=== PATIENT | female | born 1955 | race Caucasian/White ===

== ENCOUNTER 2021-07-20 17:04 | Inpatient (IN) | payer OTHER ==
[~2021-07-20] VITALS: Ht 167.6 cm; Wt 123.5 kg
--- NOTE | 2021-07-20 17:09 | NUR ---
BIBA FOR AMS WITH STABLE VITALS. 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 EMS GAVE 5MG OF IM VERSED TO SUPPRESS SEIZURE. FSBS 126 ON ARRIVAL PATIENT POST ICTAL. NON ROUSABLE, PUPIL PERRLA X 3 BUT SLUGGISH JAW THRUST TRANSITIONED TO RIGHT NARE 20F NPA (PLACED BY INSIDE CHANNEL ACCOUNT MANAGER) FOR AIRWAY COLLAPSE PATIENT INCONTINENT OF URINE REPEAT FSBS 162 LABS DRAWN.ECG OBTAINED THEN TRANSPORTED TO CT SCAN
[2021-07-20] MEDS ORDERED: PLEASE ENTER ALLERGIES MC SCH (17:30)
[2021-07-20] MEDS ORDERED: PLEASE ENTER HEIGHT AND WEIGHT MC SCH (17:30)
[2021-07-20] MEDS ORDERED: SODIUM CHLORIDE FLUSH 10ML SYR IVF ONE (17:30)
[2021-07-20 17:36] LABS: BASOPHILS % (AUTO) 0 % (0-1); EOSINOPHILS % (AUTO) 0 % (1-7); LYMPHOCYTES % (AUTO) 11 % (22-44); MEAN CORPUSCULAR HEMOGLOBIN 31.9 pg (27.0-34.8); MEAN CORPUSCULAR HGB CONC 33.6 g/dL (32.4-35.8); MEAN PLATELET VOLUME 8.1 fL (7.4-10.4); MONOCYTES % (AUTO) 6 % (2-9); NEUTROPHILS % (AUTO) 82 % (42-75); PLATELET COUNT 397 x10^3/uL (130-400); RED BLOOD COUNT 4.77 x10^6/uL (3.82-5.3); RED CELL DISTRIBUTION WIDTH 13.8 % (9.6-15.2)
--- NOTE | 2021-07-20 17:42 | NUR ---
PATIENT NOW ALERT/ORIENT. NO FOCAL DEFICITS. ABLE TO PROVIDE A FAIRLY GOOD HISTORY
[2021-07-20 17:49] LABS: INTERNATIONAL NORMALIZED RATIO 1.03 (0.93-1.1)
[2021-07-20 17:49] LABS: ALANINE AMINOTRANSFERASE 30 U/L (12-78); ALBUMIN 3.7 g/dL (3.4-5.0); ANION GAP 16 mmol/L (5-15); CALCIUM 9.9 mg/dL (8.5-10.1); CHLORIDE 89 mmol/L (98-107); SALICYLATE LEVEL 2.5 mg/dL (2.8-20.0)
[2021-07-20 17:51] LABS: ALKALINE PHOSPHATASE 110 U/L (45-117); BILIRUBIN,TOTAL 0.4 mg/dL (0.2-1.0); CREATININE 1.44 mg/dL (0.55-1.02); TOTAL PROTEIN 8.1 g/dL (6.4-8.2)
--- NOTE | 2021-07-20 18:01 | NUR ---
STRAIGHT CATHERIZED FOR SAMPLE-WALKED TO LAB
--- NOTE | 2021-07-20 18:05 | NUR ---
CONCHA MURGUIA AT BEDSIDE. REPORTS PATIENT HAS BEEN OVER USING XANAX- CELL: [phone]
[2021-07-20 18:13] LABS: MICROSCOPIC AUTO
[2021-07-20 18:23] LABS: AMPHETAMINE SCREEN, URINE Negative (Negative); BARBITURATE SCREEN, URINE Negative (Negative); BENZODIAZEPINE SCREEN, URINE Positive (Negative); CANNABINOID SCREEN, URINE Negative (Negative); COCAINE SCREEN, URINE Negative (Negative); METHADONE SCREEN, URINE Negative (Negative); OPIATE SCREEN, URINE Positive (Negative)
--- NOTE | 2021-07-20 18:28 | NUR ---
500ML NS BOLUS COMPLETE PATIENT TRANSFERRED TO ROOM 16 REPORT TO GLADYS JAMES
[2021-07-20] MEDS ORDERED: SODIUM CHLORIDE FLUSH 10ML SYR IVF PRN (18:30)
[2021-07-20] MEDS ORDERED: SODIUM CHLORIDE 0.9% 1,000 ML IV ONE ×2 (18:30)
[2021-07-20] MEDS ORDERED: SODIUM CHLORIDE 0.9%, 500ML IVBOLUS ONE (18:30)
[2021-07-20] MEDS ORDERED: OXYcodone IR 5MG TABLET PO PRN (19:00)
[2021-07-20] MEDS ORDERED: LORazepam 2 MG/ML, 1ML IV PRN ×3 (19:00)
[2021-07-20] MEDS ORDERED: ACETAMINOPHEN 325 MG TABLET PO PRN (19:00)
[2021-07-20] MEDS ORDERED: POLYETHYLENE GLYCOL 17 GM PACKET PO PRN (19:00)
[2021-07-20] MEDS ORDERED: LORazepam 1MG TABLET PO PRN (19:00)
[2021-07-20] MEDS ORDERED: ONDANSETRON 2MG/ML, 2ML IVPush PRN (19:00)
[2021-07-20] MEDS ORDERED: ENOXAPARIN 40 MG/0.4 ML SQ SCH (19:00)
[2021-07-20] MEDS ORDERED: LABETALOL 5MG/ML, 20ML IVPush PRN (19:00)
--- NOTE | 2021-07-20 19:05 | NUR ---
Report from Mj JAMES
--- NOTE | 2021-07-20 20:34 | NUR ---
Report to Mehreen JAMES
--- NOTE | 2021-07-20 20:49 | NUR ---
Pt did not have belongings in room at time of transfer. Asked prior RN taking care of pt if they had belongings and the RN reports that there were none on arrival from [facility]
[2021-07-20 21:00] VITALS: BP 137/84
[2021-07-20] MEDS ORDERED: MELATONIN 5 MG TABLET PO PRN (21:00)
[2021-07-20] MEDS: ENOXAPARIN 40 MG/0.4 ML SQ SCH (22:59)
[2021-07-20 23:30] VITALS: BP 142/75
[2021-07-21 02:00] VITALS: BP 117/79
[2021-07-21 05:57] LABS: CHLORIDE,URINE RANDOM 21 mmol/L; POTASSIUM,URINE RANDOM 5 mmol/L; SODIUM,URINE RANDOM 25 mmol/L
[2021-07-21 06:01] LABS: BASOPHILS % (AUTO) 0 % (0-1); EOSINOPHILS % (AUTO) 0 % (1-7); LYMPHOCYTES % (AUTO) 15 % (22-44); MEAN CORPUSCULAR HEMOGLOBIN 32.1 pg (27.0-34.8); MEAN CORPUSCULAR HGB CONC 34.1 g/dL (32.4-35.8); MEAN PLATELET VOLUME 8.3 fL (7.4-10.4); MONOCYTES % (AUTO) 10 % (2-9); NEUTROPHILS % (AUTO) 75 % (42-75); PLATELET COUNT 355 x10^3/uL (130-400); RED BLOOD COUNT 4.49 x10^6/uL (3.82-5.3)
[2021-07-21 06:02] LABS: ANION GAP 6 mmol/L (5-15); CALCIUM 10.6 mg/dL (8.5-10.1); CHLORIDE 95 mmol/L (98-107); CREATININE 1.09 mg/dL (0.55-1.02)
[2021-07-21 08:20] VITALS: BP 124/82
[2021-07-21] MEDS ORDERED: OXCA600T10 PO (12:16)
[2021-07-21] MEDS ORDERED: BUPR300T94 PO (12:16)
[2021-07-21] MEDS ORDERED: SERT-238 PO (12:16)
[2021-07-21] MEDS ORDERED: LISI1TAB23 PO (12:16)
[2021-07-21] MEDS ORDERED: AZEL137S4 NAS (12:16)
[2021-07-21] MEDS ORDERED: HYDR-826 PO (12:16)
[2021-07-21] MEDS ORDERED: NIFE-7 PO (12:16)
[2021-07-21] MEDS ORDERED: ALPR0.5T93 PO (12:16)
[2021-07-21] MEDS ORDERED: OMEP20CA20 PO (12:16)
[2021-07-21] MEDS ORDERED: LITH300T30 PO (12:16)
[2021-07-21 15:14] VITALS: BP 128/79
[2021-07-21] MEDS ORDERED: LEVA1.2543 INH (18:13)
[2021-07-21] MEDS ORDERED: SERT100T PO (18:50)
[2021-07-21 19:52] VITALS: BP 142/80
[2021-07-21] MEDS: ENOXAPARIN 40 MG/0.4 ML SQ SCH (20:58)
[2021-07-21] MEDS ORDERED: AMITRIPTYLINE 10 MG TABLET PO SCH (21:00)
[2021-07-21] MEDS ORDERED: SERTRALINE 50MG TABLET PO SCH (21:00)
[2021-07-21] MEDS ORDERED: AMITRIPTYLINE 50 MG TABLET PO SCH (21:00)
[2021-07-21] MEDS ORDERED: LITHIUM CARBONATE 300 MG CAPSULE PO SCH (21:00)
[2021-07-22 00:47] VITALS: BP 155/84
[2021-07-22] MEDS: LORazepam 0.5MG TABLET PO PRN ×2 (01:20→09:21)
[2021-07-22 07:32] VITALS: BP 147/83
[2021-07-22 12:01] VITALS: BP 142/86
[2021-07-22] MEDS ORDERED: OMEPRAZOLE 20 MG CAPSULE.DR PO SCH (12:30)
[2021-07-22 19:00] VITALS: BP 138/83
== END 2021-07-22 19:45 | disposition home or self-care (01) | DRG 91 ==
LOC: ED 18:15 → EDIP 18:23 → ED 21:22 → 4WST 21:44
PROVIDERS: ADMIT Internal Medicine; ATTEND Internal Medicine
DX: G92 Toxic encephalopathy (principal); N17.0 Acute kidney failure with tubular necrosis; Z68.41 Body mass index [BMI] 40.0-44.9, adult; F33.3 Major depressive disorder, recurrent, severe with psychotic symptoms; E11.9 Type 2 diabetes mellitus without complications; E66.9 Obesity, unspecified; F41.0 Panic disorder [episodic paroxysmal anxiety]; F41.1 Generalized anxiety disorder; I10 Essential (primary) hypertension; E66.01 Morbid (severe) obesity due to excess calories; Z91.14 Patient's other noncompliance with medication regimen
CPT/HCPCS: 36415; 70450; 70551; 71045; 80048; 80053; 80178; 80299; 80307; 80320; 80329; 81001; 82436; 82570; 82962; 83735; 84133; 84300; 84443; 85025; 85610; 85730; 93005; 95819; 96360; 99291; G0378; J1650; G0480; J7030; J7040

== ENCOUNTER 2021-08-06 14:20 | Inpatient (IN) | payer MEDICARE, OTHER ==
[~2021-08-06] VITALS: Ht 160 cm; Wt 122.4 kg
[~2021-08-06 14:20] MED LIST: ALPR0.5T93 PO; AZEL137S4 NAS; BUPR300T94 PO; HYDR-826 PO; LEVA1.2543 INH; LISI1TAB23 PO; LITH300T30 PO; NIFE-7 PO; OMEP20CA20 PO; OXCA600T10 PO; SERT-238 PO; SERT100T PO
[2021-08-06] MEDS ORDERED: MIDAZOLAM 1 MG/ML, 2ML ONE (14:40)
--- NOTE | 2021-08-06 14:53 | NUR ---
PT BIB [facility], PT WITH LAST KNOWN NORMAL GREATER THEN 24HRS AGO PER PT SON. PER SON SHE HAS BEEN SLEEPING WITH A CONTRATED HAND FOR ABOUT A DAY AND THEN A FEW HOURS AGO SHE BEGAN TO "BREATH FUNNY" PT ARRIVES CONTRACTED R ARM, EYES DEVIATED AND FIXED TO THE LEFT. +BABINSKI ON ERMD EXAM. PT HYPERTENSIVE 215/119 HR 140 RR 33. FSBG 169 ON ARRIVAL. PT WITH RECENT DX OF SEIZURES. PT GIVEN 2.5 VERSED OVEN DRIER TENDER. NO OBVIOUS EFFECT NOTED. ADDITIONAL 4MG ORDERED BY ALEXANDRA AND ADMINISTERED. PT TO CARD MONITOR, BP, CONT PULSE OX. PT TO T3 AT THIS TIME, CT CALLED BY ALEXANDRA. REPORT TO ROMINA JAMES. SON BLADE [phone]
--- NOTE | 2021-08-06 14:59 | NUR ---
ASSUMED CARE, PT ON TRANSPORT MONITOR AND TAKEN TO CT WITH RN ESCORT.
[2021-08-06] MEDS ORDERED: PLEASE ENTER HEIGHT AND WEIGHT MC SCH (15:00)
[2021-08-06] MEDS ORDERED: SODIUM CHLORIDE FLUSH 10ML SYR IVF ONE (15:00)
[2021-08-06] MEDS ORDERED: MIDAZOLAM 1 MG/ML, 5ML IVPush ONE (15:00)
[2021-08-06] MEDS ORDERED: OMNIPAQUE 350 MG/ML, 100ML BOTTLE ONE (15:21)
[2021-08-06 15:44] LABS: BASOPHILS % (AUTO) 0 % (0-1); EOSINOPHILS % (AUTO) 0 % (1-7); LYMPHOCYTES % (AUTO) 4 % (22-44); MEAN CORPUSCULAR HEMOGLOBIN 31.9 pg (27.0-34.8); MEAN CORPUSCULAR HGB CONC 35.1 g/dL (32.4-35.8); MEAN PLATELET VOLUME 8.5 fL (7.4-10.4); MONOCYTES % (AUTO) 6 % (2-9); NEUTROPHILS % (AUTO) 90 % (42-75); PLATELET COUNT 395 x10^3/uL (130-400); RED BLOOD COUNT 4.93 x10^6/uL (3.82-5.3); RED CELL DISTRIBUTION WIDTH 13.2 % (9.6-15.2)
[2021-08-06 15:50] LABS: INTERNATIONAL NORMALIZED RATIO 1.04 (0.93-1.1); PROTHROMBIN TIME 11.1 Seconds (9.6-11.5); SALICYLATE LEVEL < 1.7 mg/dL (2.8-20.0)
[2021-08-06 15:53] LABS: CREATINE KINASE, TOTAL 41 U/L (26-192); TROPONIN I < 0.015 ng/mL (0.000-0.045)
[2021-08-06] MEDS ORDERED: SODIUM CHLORIDE 0.9% 1,000ML IVBOLUS ONE ×2 (16:00→17:00)
[2021-08-06] MEDS ORDERED: SODIUM CHLORIDE 0.9% 1,000 ML IV ONE (16:00)
[2021-08-06] MEDS ORDERED: ARTIFICIAL TEARS OINT 3.5 GM EACHEYE SCH (16:00)
--- NOTE | 2021-08-06 16:01 | NUR ---
LATE ENTRY FOR 1500, CT AND CTA WERE COMPLETED W/O INCIDENT. WHEN TRANSFERING PT FROM CT TABLE BACK [facility], PT SAID VERY CLEARLY "WHAT ARE YOU DOING" PT RTD TO TRAUMA [address] JENKINS TO BEDSIDE. PT NOW FOLLOWING COMMANDS AND ANSWERS QUESTIONS. ORIENTED TO PERSON ONLY. ABLE TO MOVE EXT X 4 TO COMMAND, OPEN AND CLOSE HER EYES ON COMMAND. ORAL CARE COMPLETED AND PT COOPERATIVE. PT CONTINUES TO BE SOMEWHAT STIFF, PREFERS TO HAVE RIGHT ARM FLEXED AT THE ELBOW AND WRIST FLEX BACK WELL, HOWEVER I CAN REPOSITION IT TO LAYING NEXT TO HER BUT SHE BRINGS IT BACK UP TO THE FLEXED POSITION. PT DOES NOT BLINK SPONTANEOUSLY BUT WILL BLINK WHEN I INSTRUCT HER TO. EYES ARE EXTREMELY DRY, SALINE FLUSHES USED TO MOISTEN AND ARTIFICAL TEAR OINTMENT ORDER SENT TO PHARM.
[2021-08-06 16:28] LABS: ACETONE, SERUM Negative (Negative)
[2021-08-06] MEDS ORDERED: AZTREONAM 2 GM in SODIUM CHLORIDE 0.9% 100 ML IVPB ONE (16:30)
[2021-08-06] MEDS ORDERED: VANCOMYCIN PER PHARMACY MC ONE (16:30)
[2021-08-06] MEDS ORDERED: hydrALAzine 20 MG/ML, 1ML IV ONE (16:30)
[2021-08-06] MEDS ORDERED: hydrALAzine 20 MG/ML, 1ML ONE (16:32)
--- NOTE | 2021-08-06 16:32 | NUR ---
LAB RESULTS AND BP DISCUSSED WITH DR JENKINS, NEW ORDERS REC'D. BP TREATED WITH HYDRALAZINE NOTED.
--- NOTE | 2021-08-06 16:36 | NUR ---
DR FULTON AT BEDSIDE, PT ASSESSEMENT REVIEWED AND POC DISCUSSED. QUESTIONS ANSWERED
[2021-08-06] MEDS ORDERED: METOPROLOL 1 MG/ML, 5ML ONE (16:48)
[2021-08-06] MEDS: METOPROLOL 1 MG/ML, 5ML IVPush SCH ×2 (16:50→23:00)
[2021-08-06] MEDS ORDERED: VANCOMYCIN PER PHARMACY MC PRN (17:00)
[2021-08-06] MEDS ORDERED: DIPHENHYDRAMINE 50 MG/ML, 1ML IVPush ONE (17:00)
[2021-08-06] MEDS ORDERED: ONDANSETRON 2MG/ML, 2ML IVPush PRN (17:00)
[2021-08-06] MEDS ORDERED: VANCOMYCIN 2,500 MG in SODIUM CHLORIDE 0.9% 500 ML IV ONE (17:00)
[2021-08-06] MEDS ORDERED: SODIUM CHLORIDE 0.9% 1,000 ML IV SCH (17:00)
[2021-08-06] MEDS ORDERED: SODIUM CHLORIDE FLUSH 10ML SYR IVF PRN (17:00)
[2021-08-06] MEDS ORDERED: ENOXAPARIN 40 MG/0.4 ML SQ SCH (17:00)
--- NOTE | 2021-08-06 17:03 | NUR ---
SEPSIS WORKUP DISCUSSED WITH DR HAMMONDS. PT REC'D 1000ML NS BOLUS AND NS TO RUN AT 125ML/HR. PT IS NOT HYPOTENSIVE AND WE WILL NOT BE GIVING MORE BOLUSES 2/2 PTS SODIUM LEVEL OF 119.
[2021-08-06 17:19] LABS: ALBUMIN 3.3 g/dL (3.4-5.0); ANION GAP 11 mmol/L (5-15); CALCIUM 9.6 mg/dL (8.5-10.1); CHLORIDE 80 mmol/L (98-107)
--- NOTE | 2021-08-06 17:22 | NUR ---
LATE ENTRY 1700, STRAIGHT CATH COMPLETED FOR URINE. +300ML CLEAR DANIELLA URINE DRAINED. LEFT HAND PIV LEAKING BLOOD AT INSERTION SITE AND INTO SURROUNDING TISSUE. IV D/C'D TIP INTACT. PRESSURE DRESSING APPLIED. HEMOSTASIS OBTAINED
[2021-08-06 17:24] LABS: ALANINE AMINOTRANSFERASE 27 U/L (12-78); ALKALINE PHOSPHATASE 144 U/L (45-117); BILIRUBIN,TOTAL 0.4 mg/dL (0.2-1.0); CREATININE 1.02 mg/dL (0.55-1.02); TOTAL PROTEIN 7.8 g/dL (6.4-8.2)
--- NOTE | 2021-08-06 17:24 | NUR ---
PT SON, BLADE AT BEDSIDE. DR JENKINS UPDATE SON ON PT PLAN OF CARE AND QUESTIONS ANSWERED.
--- NOTE | 2021-08-06 17:25 | NUR ---
DENNY KERN [phone]
[2021-08-06] MEDS ORDERED: DIPHENHYDRAMINE 50 MG/ML, 1ML ONE (17:29)
[2021-08-06 17:37] LABS: TROPONIN I 0.179 ng/mL (0.000-0.045)
[2021-08-06 17:38] LABS: MICROSCOPIC AUTO
[2021-08-06 17:39] LABS: AMPHETAMINE SCREEN, URINE Negative (Negative); BARBITURATE SCREEN, URINE Negative (Negative); BENZODIAZEPINE SCREEN, URINE Positive (Negative); CANNABINOID SCREEN, URINE Negative (Negative); COCAINE SCREEN, URINE Negative (Negative); METHADONE SCREEN, URINE Negative (Negative); OPIATE SCREEN, URINE Negative (Negative)
--- NOTE | 2021-08-06 17:40 | NUR ---
UPDATED DR HAMMONDS RE: BP, ELEVATED TROPONIN
[2021-08-06] MEDS: MEROPENEM 1 GM in SODIUM CHLORIDE 0.9% 100 ML IV SCH (17:41)
[2021-08-06] MEDS ORDERED: MAGNESIUM SULFATE PMX 2GM/50ML 50 ML IV ONE (18:00)
[2021-08-06] MEDS ORDERED: ACETAMINOPHEN 650 MG SUPP PR PRN (18:00)
[2021-08-06] MEDS ORDERED: ASPIRIN 300 MG SUPP PR ONE (18:00)
[2021-08-06 18:02] LABS: ANION GAP 10 mmol/L (5-15); CALCIUM 10.1 mg/dL (8.5-10.1); CHLORIDE 85 mmol/L (98-107); CREATININE 0.99 mg/dL (0.55-1.02)
[2021-08-06] MEDS ORDERED: ACETAMINOPHEN 325 MG SUPP ONE (18:20)
[2021-08-06] MEDS ORDERED: ASPIRIN 300 MG SUPP ONE (18:20)
[2021-08-06] MEDS: cloniDINE 0.1MG PATCH TD SCH (18:33)
--- NOTE | 2021-08-06 18:45 | NUR ---
3 PAPIRS OF EARINGS, NECKLACE AND 6 RINGS SENT HOME WITH PTS SON. Addendum: 08/06/21 at 1846 by RFRUHLING ALSO A WATCH
[2021-08-06] MEDS ORDERED: ENOXAPARIN 40 MG/0.4 ML ONE (18:47)
[2021-08-06] MEDS ORDERED: PHARMACOKINETIC MONITORING MC PRN (19:30)
[2021-08-06] MEDS ORDERED: PHARMACOKINETIC CONSULTATION MC ONE (19:30)
[2021-08-06] MEDS: FAMOTIDINE 20 MG/2 ML IVPush SCH (20:51)
[2021-08-06] MEDS: INSULIN LISPRO 100 UNITS/ML, PEN SQ-INSULIN SCH (20:58)
[2021-08-06 23:31] LABS: ANION GAP 10 mmol/L (5-15); CALCIUM 9.4 mg/dL (8.5-10.1); CHLORIDE 90 mmol/L (98-107); CREATININE 0.88 mg/dL (0.55-1.02)
[2021-08-06 23:34] LABS: TROPONIN I 0.812 ng/mL (0.000-0.045)
[2021-08-07] MEDS: DIPHENHYDRAMINE 50 MG/ML, 1ML IVPush SCH ×2 (00:08→05:00)
[2021-08-07] MEDS: MEROPENEM 1 GM in SODIUM CHLORIDE 0.9% 100 ML IV SCH ×3 (02:00→18:13)
[2021-08-07 03:53] LABS: BASOPHILS % (AUTO) 0 % (0-1); EOSINOPHILS % (AUTO) 0 % (1-7); LYMPHOCYTES % (AUTO) 4 % (22-44); MEAN CORPUSCULAR HEMOGLOBIN 31.9 pg (27.0-34.8); MEAN CORPUSCULAR HGB CONC 34.7 g/dL (32.4-35.8); MEAN PLATELET VOLUME 8.2 fL (7.4-10.4); MONOCYTES % (AUTO) 8 % (2-9); NEUTROPHILS % (AUTO) 88 % (42-75); PLATELET COUNT 321 x10^3/uL (130-400); RED BLOOD COUNT 4.62 x10^6/uL (3.82-5.3); RED CELL DISTRIBUTION WIDTH 13.5 % (9.6-15.2)
[2021-08-07] MEDS ORDERED: POTASSIUM CHLORIDE 40 MEQ in SODIUM CHLORIDE 0.9% 500 ML IV ONE (04:00)
[2021-08-07 04:01] LABS: ANION GAP 8 mmol/L (5-15); CALCIUM 9.6 mg/dL (8.5-10.1); CHLORIDE 91 mmol/L (98-107); CREATININE 0.86 mg/dL (0.55-1.02)
[2021-08-07] MEDS: METOPROLOL 1 MG/ML, 5ML IVPush SCH (04:02)
[2021-08-07 04:04] LABS: TROPONIN I 0.665 ng/mL (0.000-0.045)
[2021-08-07] MEDS: VANCOMYCIN 2,000 MG in SODIUM CHLORIDE 0.9% 500 ML IV SCH ×2 (05:37→23:54)
[2021-08-07] MEDS: INSULIN LISPRO 100 UNITS/ML, PEN SQ-INSULIN SCH (05:50)
[2021-08-07] MEDS ORDERED: VANCOMYCIN 2,500 MG in SODIUM CHLORIDE 0.9% 500 ML IV SCH (06:00)
[2021-08-07 07:49] LABS: ALANINE AMINOTRANSFERASE 35 U/L (12-78); CHOLESTEROL, TOTAL 278 mg/dL (140-239); TRIGLYCERIDES 128 mg/dL (50-200); VLDL CHOLESTEROL 26 mg/dL (0-25)
[2021-08-07 07:50] LABS: ALKALINE PHOSPHATASE 131 U/L (45-117); BILIRUBIN,TOTAL 0.5 mg/dL (0.2-1.0); CHOL/HDL RATIO 3.1; HDL CHOL % 32 % (28-40); HDL CHOLESTEROL (DIRECT) 90 mg/dL (40-60); LDL CHOLESTEROL,CALCULATED 162 mg/dL (54-169); LDL/HDL RATIO 1.8 (0.5-3.0); TOTAL PROTEIN 7.1 g/dL (6.4-8.2)
[2021-08-07] MEDS: FAMOTIDINE 20 MG/2 ML IVPush SCH ×2 (08:56→21:06)
[2021-08-07] MEDS ORDERED: SODIUM CHLORIDE 0.9% 1,000 ML IV SCH (09:00)
[2021-08-07] MEDS ORDERED: DIPHENHYDRAMINE 50 MG/ML, 1ML IVPush ONE (09:30)
[2021-08-07] MEDS ORDERED: DIPHENHYDRAMINE 50 MG/ML, 1ML IVPush PRN (10:00)
[2021-08-07 10:59] LABS: ANION GAP 9 mmol/L (5-15); CALCIUM 9.6 mg/dL (8.5-10.1); CHLORIDE 96 mmol/L (98-107); CREATININE 0.79 mg/dL (0.55-1.02)
[2021-08-07] MEDS ORDERED: ALBUTEROL SULFATE 2.5 MG/3 ML ONE (11:23)
[2021-08-07] MEDS: ALBUTEROL SULFATE 2.5 MG/3 ML NPPB SCH ×2 (12:00→17:31)
[2021-08-07] MEDS ORDERED: ALBUTEROL SULFATE 2.5 MG/3 ML NPPB PRN (12:00)
[2021-08-07 16:49] LABS: ANION GAP 6 mmol/L (5-15); CALCIUM 9.2 mg/dL (8.5-10.1); CHLORIDE 98 mmol/L (98-107); CREATININE 0.77 mg/dL (0.55-1.02)
[2021-08-07] MEDS ORDERED: POTASSIUM CHLORIDE 20 MEQ TAB.ER.PRT PO ONE (17:30)
[2021-08-07] MEDS ORDERED: DEXMEDETOMIDINE 400 MCG in SODIUM CHLORIDE 0.9% 96 ML IV PRN (18:00)
[2021-08-07] MEDS: METOPROLOL TARTRATE 50 MG TAB PO SCH (18:09)
[2021-08-07] MEDS: hydrALAzine 20 MG/ML, 1ML IV PRN (18:17)
[2021-08-07] MEDS: ENOXAPARIN 40 MG/0.4 ML SQ SCH (21:06)
[2021-08-07] MEDS: ATORVASTATIN 40 MG TABLET PO SCH (21:06)
[2021-08-07] MEDS: DEXMEDETOMIDINE 1,000 MCG in SODIUM CHLORIDE 0.9% 240 ML IV PRN (22:42)
[2021-08-08] MEDS: MEROPENEM 1 GM in SODIUM CHLORIDE 0.9% 100 ML IV SCH ×3 (02:10→16:50)
[2021-08-08 05:04] LABS: ANION GAP 6 mmol/L (5-15); CALCIUM 9.1 mg/dL (8.5-10.1); CHLORIDE 99 mmol/L (98-107); CREATININE 0.75 mg/dL (0.55-1.02)
[2021-08-08 05:05] LABS: BASOPHILS % (AUTO) 0 % (0-1); EOSINOPHILS % (AUTO) 4 % (1-7); LYMPHOCYTES % (AUTO) 9 % (22-44); MEAN CORPUSCULAR HEMOGLOBIN 31.6 pg (27.0-34.8); MEAN CORPUSCULAR HGB CONC 33.9 g/dL (32.4-35.8); MONOCYTES % (AUTO) 7 % (2-9); NEUTROPHILS % (AUTO) 80 % (42-75); PLATELET COUNT 259 x10^3/uL (130-400); RED BLOOD COUNT 4.03 x10^6/uL (3.82-5.3); RED CELL DISTRIBUTION WIDTH 13.1 % (9.6-15.2)
[2021-08-08] MEDS: METOPROLOL TARTRATE 50 MG TAB PO SCH ×2 (05:37→18:17)
[2021-08-08] MEDS: ASPIRIN 81 MG TABLET EC PO SCH (05:37)
[2021-08-08] MEDS: ALBUTEROL SULFATE 2.5 MG/3 ML NPPB SCH ×4 (06:00→18:00)
[2021-08-08] MEDS: FAMOTIDINE 20 MG/2 ML IVPush SCH (08:41)
[2021-08-08] MEDS: ENOXAPARIN 40 MG/0.4 ML SQ SCH ×2 (08:42→20:03)
[2021-08-08] MEDS: DEXMEDETOMIDINE 1,000 MCG in SODIUM CHLORIDE 0.9% 240 ML IV PRN (10:20)
[2021-08-08] MEDS ORDERED: HALOPERIDOL 5 MG/ML ONE (10:29)
[2021-08-08] MEDS ORDERED: HALOPERIDOL 5 MG/ML IV ONE (11:00)
[2021-08-08] MEDS: NICOTINE 14MG/24 HR PATCH.TD24 TD SCH (15:49)
[2021-08-08 16:10] LABS: CLOSTRIDIUM DIFFICILE ANTIGEN NEGATIVE; CLOSTRIDIUM DIFFICILE TOXIN NEGATIVE (Negative)
[2021-08-08] MEDS: VANCOMYCIN 2,000 MG in SODIUM CHLORIDE 0.9% 500 ML IV SCH (18:20)
[2021-08-08 19:07] LABS: MICROSCOPIC INDICATED
[2021-08-08] MEDS: ATORVASTATIN 40 MG TABLET PO SCH (20:03)
[2021-08-08] MEDS: LABETALOL 5MG/ML, 20ML IVPush PRN (20:33)
[2021-08-08] MEDS: ACETAMINOPHEN 325 MG TABLET PO PRN (23:56)
[2021-08-08] MEDS: VANCOMYCIN 2,200 MG in SODIUM CHLORIDE 0.9% 500 ML IV SCH (23:56)
[2021-08-09] MEDS: ALBUTEROL SULFATE 2.5 MG/3 ML NPPB SCH
[2021-08-09] MEDS: MEROPENEM 1 GM in SODIUM CHLORIDE 0.9% 100 ML IV SCH ×3 (02:36→18:45)
[2021-08-09] MEDS: ALBUTEROL HFA 90 MCG/SPRAY INH SCH ×4 (03:00→21:00)
[2021-08-09 05:11] LABS: ALBUMIN 2.4 g/dL (3.4-5.0); ANION GAP 4 mmol/L (5-15); CALCIUM 9.6 mg/dL (8.5-10.1); CHLORIDE 104 mmol/L (98-107)
[2021-08-09 05:13] LABS: BASOPHILS % (AUTO) 0 % (0-1); EOSINOPHILS % (AUTO) 4 % (1-7); LYMPHOCYTES % (AUTO) 7 % (22-44); MEAN CORPUSCULAR HEMOGLOBIN 31.6 pg (27.0-34.8); MEAN CORPUSCULAR HGB CONC 33.7 g/dL (32.4-35.8); MONOCYTES % (AUTO) 7 % (2-9); NEUTROPHILS % (AUTO) 83 % (42-75); PLATELET COUNT 278 x10^3/uL (130-400); RED BLOOD COUNT 4.26 x10^6/uL (3.82-5.3); RED CELL DISTRIBUTION WIDTH 13.3 % (9.6-15.2)
[2021-08-09 05:16] LABS: ALANINE AMINOTRANSFERASE 28 U/L (12-78); ALKALINE PHOSPHATASE 119 U/L (45-117); BILIRUBIN,TOTAL 0.5 mg/dL (0.2-1.0); CREATININE 0.77 mg/dL (0.55-1.02); TOTAL PROTEIN 6.1 g/dL (6.4-8.2)
[2021-08-09] MEDS: METOPROLOL TARTRATE 50 MG TAB PO SCH ×2 (06:12→17:13)
[2021-08-09] MEDS: ASPIRIN 81 MG TABLET EC PO SCH (06:12)
[2021-08-09] MEDS: ENOXAPARIN 40 MG/0.4 ML SQ SCH ×2 (09:01→20:58)
[2021-08-09] MEDS: SERTRALINE 50MG TABLET PO SCH (09:01)
[2021-08-09] MEDS: LABETALOL 5MG/ML, 20ML IVPush PRN (09:15)
[2021-08-09] MEDS: NICOTINE 14MG/24 HR PATCH.TD24 TD SCH (11:00)
[2021-08-09] MEDS: hydrALAzine 20 MG/ML, 1ML IV PRN (13:16)
[2021-08-09 14:08] VITALS: BP 166/92
[2021-08-09 19:59] VITALS: BP 158/87
[2021-08-09] MEDS: ATORVASTATIN 40 MG TABLET PO SCH (20:58)
[2021-08-10 01:54] VITALS: BP 152/84
[2021-08-10] MEDS: MEROPENEM 1 GM in SODIUM CHLORIDE 0.9% 100 ML IV SCH ×3 (02:30→18:05)
[2021-08-10] MEDS: ALBUTEROL HFA 90 MCG/SPRAY INH SCH ×4 (03:00→21:48)
[2021-08-10 05:26] LABS: BASOPHILS % (AUTO) 0 % (0-1); EOSINOPHILS % (AUTO) 4 % (1-7); LYMPHOCYTES % (AUTO) 5 % (22-44); MEAN CORPUSCULAR HEMOGLOBIN 32.1 pg (27.0-34.8); MEAN PLATELET VOLUME 7.9 fL (7.4-10.4); MONOCYTES % (AUTO) 11 % (2-9); NEUTROPHILS % (AUTO) 80 % (42-75); PLATELET COUNT 284 x10^3/uL (130-400); RED BLOOD COUNT 4.23 x10^6/uL (3.82-5.3); RED CELL DISTRIBUTION WIDTH 13.3 % (9.6-15.2)
[2021-08-10 05:36] LABS: ALANINE AMINOTRANSFERASE 29 U/L (12-78); ALBUMIN 2.8 g/dL (3.4-5.0); ANION GAP 7 mmol/L (5-15); CALCIUM 9.8 mg/dL (8.5-10.1); CHLORIDE 104 mmol/L (98-107); CREATININE 0.79 mg/dL (0.55-1.02)
[2021-08-10 05:39] LABS: ALKALINE PHOSPHATASE 106 U/L (45-117); BILIRUBIN,TOTAL 0.3 mg/dL (0.2-1.0); TOTAL PROTEIN 6.4 g/dL (6.4-8.2)
[2021-08-10] MEDS: ASPIRIN 81 MG TABLET EC PO SCH (06:00)
[2021-08-10] MEDS: METOPROLOL TARTRATE 50 MG TAB PO SCH ×2 (06:00→17:28)
[2021-08-10 08:58] VITALS: BP 151/92
[2021-08-10] MEDS: SERTRALINE 50MG TABLET PO SCH (09:02)
[2021-08-10] MEDS: ENOXAPARIN 40 MG/0.4 ML SQ SCH ×2 (09:02→21:48)
[2021-08-10] MEDS: NICOTINE 14MG/24 HR PATCH.TD24 TD SCH (10:24)
[2021-08-10 13:31] VITALS: BP 147/82
[2021-08-10 21:05] VITALS: BP 157/84
[2021-08-10] MEDS: ATORVASTATIN 40 MG TABLET PO SCH (21:48)
[2021-08-10] MEDS: VANCOMYCIN 2,200 MG in SODIUM CHLORIDE 0.9% 500 ML IV SCH ×2 (23:45)
[2021-08-11 02:00] VITALS: BP 155/79
[2021-08-11] MEDS: MEROPENEM 1 GM in SODIUM CHLORIDE 0.9% 100 ML IV SCH ×3 (02:12→18:17)
[2021-08-11] MEDS: ALBUTEROL HFA 90 MCG/SPRAY INH SCH ×4 (03:32→21:47)
[2021-08-11] MEDS: METOPROLOL TARTRATE 50 MG TAB PO SCH ×2 (05:50→17:26)
[2021-08-11] MEDS: ASPIRIN 81 MG TABLET EC PO SCH (05:50)
[2021-08-11 06:26] LABS: BASOPHILS % (AUTO) 0 % (0-1); EOSINOPHILS % (AUTO) 4 % (1-7); LYMPHOCYTES % (AUTO) 3 % (22-44); MEAN CORPUSCULAR HEMOGLOBIN 31.7 pg (27.0-34.8); MEAN CORPUSCULAR HGB CONC 33.7 g/dL (32.4-35.8); MEAN PLATELET VOLUME 7.8 fL (7.4-10.4); MONOCYTES % (AUTO) 10 % (2-9); NEUTROPHILS % (AUTO) 82 % (42-75); PLATELET COUNT 261 x10^3/uL (130-400); RED BLOOD COUNT 4.34 x10^6/uL (3.82-5.3); RED CELL DISTRIBUTION WIDTH 13.8 % (9.6-15.2)
[2021-08-11 06:37] LABS: ALBUMIN 2.6 g/dL (3.4-5.0); CHLORIDE 104 mmol/L (98-107)
[2021-08-11 06:44] LABS: ANION GAP 4 mmol/L (5-15); CALCIUM 9.6 mg/dL (8.5-10.1); CREATININE 0.84 mg/dL (0.55-1.02)
[2021-08-11 08:30] VITALS: BP 166/88
[2021-08-11 08:36] VITALS: BP 155/88
[2021-08-11] MEDS: SERTRALINE 50MG TABLET PO SCH (08:50)
[2021-08-11] MEDS: ENOXAPARIN 40 MG/0.4 ML SQ SCH ×2 (08:51→21:41)
[2021-08-11 10:06] VITALS: BP 142/66
[2021-08-11] MEDS: NICOTINE 14MG/24 HR PATCH.TD24 TD SCH (11:02)
[2021-08-11 12:19] VITALS: BP 151/71
[2021-08-11 20:44] VITALS: BP 138/75
[2021-08-11] MEDS: ATORVASTATIN 40 MG TABLET PO SCH (21:40)
[2021-08-12] VITALS (7 sets, daily range): BP systolic 133–175; BP diastolic 73–90
[2021-08-12] MEDS: VANCOMYCIN 2,200 MG in SODIUM CHLORIDE 0.9% 500 ML IV SCH (00:14)
[2021-08-12] MEDS: MEROPENEM 1 GM in SODIUM CHLORIDE 0.9% 100 ML IV SCH ×2 (02:56→11:32)
[2021-08-12] MEDS: ALBUTEROL HFA 90 MCG/SPRAY INH SCH ×4 (02:57→20:23)
[2021-08-12] MEDS: ASPIRIN 81 MG TABLET EC PO SCH (05:53)
[2021-08-12] MEDS: METOPROLOL TARTRATE 50 MG TAB PO SCH ×2 (05:54→16:50)
[2021-08-12] MEDS: SERTRALINE 50MG TABLET PO SCH (08:52)
[2021-08-12] MEDS: ENOXAPARIN 40 MG/0.4 ML SQ SCH ×2 (08:52→20:23)
[2021-08-12] MEDS: NICOTINE 14MG/24 HR PATCH.TD24 TD SCH (11:34)
[2021-08-12 13:26] LABS: BASOPHILS % (AUTO) 0 % (0-1); EOSINOPHILS % (AUTO) 4 % (1-7); LYMPHOCYTES % (AUTO) 6 % (22-44); MEAN CORPUSCULAR HEMOGLOBIN 31.7 pg (27.0-34.8); MEAN CORPUSCULAR HGB CONC 33.6 g/dL (32.4-35.8); MEAN PLATELET VOLUME 7.9 fL (7.4-10.4); MONOCYTES % (AUTO) 11 % (2-9); NEUTROPHILS % (AUTO) 78 % (42-75); PLATELET COUNT 229 x10^3/uL (130-400); RED BLOOD COUNT 4.26 x10^6/uL (3.82-5.3); RED CELL DISTRIBUTION WIDTH 13.7 % (9.6-15.2)
[2021-08-12 13:39] LABS: ALBUMIN 2.5 g/dL (3.4-5.0); ANION GAP 3 mmol/L (5-15); CALCIUM 9.3 mg/dL (8.5-10.1); CHLORIDE 101 mmol/L (98-107)
[2021-08-12 13:42] LABS: ALANINE AMINOTRANSFERASE 27 U/L (12-78); ALKALINE PHOSPHATASE 93 U/L (45-117); BILIRUBIN,TOTAL 0.3 mg/dL (0.2-1.0); CREATININE 0.77 mg/dL (0.55-1.02); TOTAL PROTEIN 6.3 g/dL (6.4-8.2)
[2021-08-12] MEDS: ATORVASTATIN 40 MG TABLET PO SCH (20:22)
[2021-08-12] MEDS: ACETAMINOPHEN 325 MG TABLET PO PRN (23:13)
[2021-08-13 00:48] VITALS: BP 138/80
[2021-08-13] MEDS: ACETAMINOPHEN 325 MG TABLET PO PRN ×3 (03:14→14:00)
[2021-08-13] MEDS: ALBUTEROL HFA 90 MCG/SPRAY INH SCH ×4 (03:14→20:49)
[2021-08-13 04:47] LABS: CREATININE 0.72 mg/dL (0.55-1.02)
[2021-08-13] MEDS: METOPROLOL TARTRATE 50 MG TAB PO SCH ×2 (05:41→17:48)
[2021-08-13] MEDS: ASPIRIN 81 MG TABLET EC PO SCH (05:42)
[2021-08-13 07:49] VITALS: BP 143/80
[2021-08-13 07:53] LABS: BASOPHILS % (AUTO) 1 % (0-1); EOSINOPHILS % (AUTO) 4 % (1-7); LYMPHOCYTES % (AUTO) 12 % (22-44); MEAN CORPUSCULAR HEMOGLOBIN 31.1 pg (27.0-34.8); MEAN CORPUSCULAR HGB CONC 33.1 g/dL (32.4-35.8); MEAN PLATELET VOLUME 8.7 fL (7.4-10.4); MONOCYTES % (AUTO) 13 % (2-9); NEUTROPHILS % (AUTO) 71 % (42-75); PLATELET COUNT 186 x10^3/uL (130-400); RED BLOOD COUNT 4.04 x10^6/uL (3.82-5.3); RED CELL DISTRIBUTION WIDTH 13.4 % (9.6-15.2)
[2021-08-13] MEDS: SERTRALINE 50MG TABLET PO SCH (07:54)
[2021-08-13] MEDS: ENOXAPARIN 40 MG/0.4 ML SQ SCH ×2 (07:54→20:49)
[2021-08-13 09:02] LABS: ALBUMIN 2.5 g/dL (3.4-5.0); ANION GAP 3 mmol/L (5-15); CALCIUM 9.5 mg/dL (8.5-10.1); CHLORIDE 103 mmol/L (98-107)
[2021-08-13 09:07] LABS: ALANINE AMINOTRANSFERASE 21 U/L (12-78); ALKALINE PHOSPHATASE 84 U/L (45-117); BILIRUBIN,TOTAL 0.3 mg/dL (0.2-1.0); CREATININE 0.74 mg/dL (0.55-1.02)
[2021-08-13] MEDS: NICOTINE 14MG/24 HR PATCH.TD24 TD SCH (11:07)
[2021-08-13 13:40] VITALS: BP 162/77
[2021-08-13] MEDS: cloniDINE 0.1MG PATCH TD SCH (17:48)
[2021-08-13 18:47] VITALS: BP 138/82
[2021-08-13] MEDS: ATORVASTATIN 40 MG TABLET PO SCH (20:49)
[2021-08-14] MEDS: ALBUTEROL HFA 90 MCG/SPRAY INH SCH ×3 (02:25→15:53)
[2021-08-14 02:30] VITALS: BP 148/84
[2021-08-14 05:50] VITALS: BP 169/97
[2021-08-14] MEDS: ASPIRIN 81 MG TABLET EC PO SCH (05:51)
[2021-08-14] MEDS: METOPROLOL TARTRATE 50 MG TAB PO SCH (05:51)
[2021-08-14 06:22] VITALS: BP 168/98
[2021-08-14 06:47] VITALS: BP 176/100
[2021-08-14] MEDS: ENOXAPARIN 40 MG/0.4 ML SQ SCH (08:10)
[2021-08-14] MEDS: SERTRALINE 50MG TABLET PO SCH (08:11)
[2021-08-14] MEDS ORDERED: niFEDipine ER 30 MG TABLET.ER PO SCH (09:00)
[2021-08-14] MEDS ORDERED: LISINOPRIL 20 MG TABLET PO SCH (09:00)
[2021-08-14] MEDS ORDERED: REGADENOSON 0.4 MG/5 ML SYRINGE ONE (11:17)
[2021-08-14 12:00] VITALS: BP 115/74
[2021-08-14] MEDS: NICOTINE 14MG/24 HR PATCH.TD24 TD SCH (13:05)
[2021-08-14] MEDS ORDERED: METO50TA82 PO (16:45)
[2021-08-14] MEDS ORDERED: LISI-170 PO (16:45)
[2021-08-14] MEDS ORDERED: ASPI81TA45 PO (16:45)
[2021-08-14] MEDS ORDERED: ATOR40TA78 PO (16:45)
[2021-08-15] MEDS ORDERED: CARV6.2512 PO (15:37)
== END 2021-08-14 17:18 | disposition left against medical advice (07) | DRG 871 ==
LOC: ED 17:00 → EDIP 17:16 → CCU 18:53 → 4WST 08-09 13:09
PROVIDERS: ADMIT Hospitalist; ATTEND Hospitalist
PROC: B3151ZZ Fluoroscopy of Bilateral Common Carotid Arteries using Low Osmolar Contrast (ICD-10-PCS; 2021-08-06)
PROC: B3181ZZ Fluoroscopy of Bilateral Internal Carotid Arteries using Low Osmolar Contrast (ICD-10-PCS; 2021-08-06)
PROC: B31C1ZZ Fluoroscopy of Bilateral External Carotid Arteries using Low Osmolar Contrast (ICD-10-PCS; 2021-08-06)
PROC: 0T9B70Z Drainage of Bladder with Drainage Device, Via Natural or Artificial Opening (ICD-10-PCS; 2021-08-06)
PROC: 4A10X4Z Monitoring of Central Nervous Electrical Activity, External Approach (ICD-10-PCS; principal; 2021-08-07)
PROC: 5A0935A Assistance with Respiratory Ventilation, Less than 24 Consecutive Hours, High Flow/Velocity Cannula (ICD-10-PCS; 2021-08-07)
PROC: 5A09357 Assistance with Respiratory Ventilation, Less than 24 Consecutive Hours, Continuous Positive Airway Pressure (ICD-10-PCS; 2021-08-07)
PROC: 0T9B70Z Drainage of Bladder with Drainage Device, Via Natural or Artificial Opening (ICD-10-PCS; 2021-08-08)
DX: A41.9 Sepsis, unspecified organism (principal); G93.41 Metabolic encephalopathy; I21.A1 Myocardial infarction type 2; J96.90 Respiratory failure, unspecified, unspecified whether with hypoxia or hypercapnia; E87.1 Hypo-osmolality and hyponatremia; E87.2 Acidosis; I16.1 Hypertensive emergency; E83.42 Hypomagnesemia; F32.9 Major depressive disorder, single episode, unspecified; J44.9 Chronic obstructive pulmonary disease, unspecified; F17.210 Nicotine dependence, cigarettes, uncomplicated; I10 Essential (primary) hypertension; F41.0 Panic disorder [episodic paroxysmal anxiety]
CPT/HCPCS: 36415; 36600; 70450; 70496; 70498; 70551; 71045; 71275; 76700; 78452; 80047; 80048; 80053; 80061; 80069; 80178; 80202; 80299; 80307; 80320; 80329; 81001; 82010; 82375; 82550; 82565; 82803; 82962; 83036; 83605; 83690; 83735; 84100; 84145; 84484; 85025; 85379; 85610; 85730; 87040; 87081; 87324; 93005; 93017; 93306; 94640; 94660; 95819; 96361; 96365; 96374; 96375; 99291; G0378; J1650; J2185; J2250; J2405; J2785; J3370; J3480; J7613; Q9967; 92523-GN; A9502; G0480; J0360; J1200; J1630; J3475; J7030; J7040; J7050; Q0177

== ENCOUNTER 2021-08-14 19:39 | Inpatient (IN) | payer MEDICARE ==
[~2021-08-14] VITALS: Ht 167.6 cm; Wt 116.9 kg
[~2021-08-14 19:39] MED LIST changes: +ASPI81TA45 PO; +ATOR40TA78 PO; +LISI-170 PO; +METO50TA82 PO
--- NOTE | 2021-08-14 19:48 | NUR ---
[facility] reports patient BREANNA from [facility] earlier today, and when she got home she became weak and unable to stand on own. Patient states she "took a tumble" and couldn't get herself up from the ground with her walker.
--- NOTE | 2021-08-14 20:44 | NUR ---
Patient states "my son doesn't want to take care of me right now"
[2021-08-14 20:55] LABS: BASOPHILS % (AUTO) 1 % (0-1); EOSINOPHILS % (AUTO) 1 % (1-7); LYMPHOCYTES % (AUTO) 14 % (22-44); MEAN CORPUSCULAR HEMOGLOBIN 31.2 pg (27.0-34.8); MEAN CORPUSCULAR HGB CONC 33.7 g/dL (32.4-35.8); MEAN PLATELET VOLUME 8.1 fL (7.4-10.4); MONOCYTES % (AUTO) 13 % (2-9); NEUTROPHILS % (AUTO) 71 % (42-75); PLATELET COUNT 196 x10^3/uL (130-400); RED BLOOD COUNT 4.14 x10^6/uL (3.82-5.3); RED CELL DISTRIBUTION WIDTH 13.2 % (9.6-15.2)
[2021-08-14] MEDS ORDERED: SODIUM CHLORIDE 0.9% 1,000ML IVBOLUS ONE (21:00)
[2021-08-14 21:05] LABS: ALBUMIN 2.5 g/dL (3.4-5.0); ANION GAP 4 mmol/L (5-15); CALCIUM 8.8 mg/dL (8.5-10.1); CHLORIDE 98 mmol/L (98-107)
[2021-08-14 21:11] LABS: ALANINE AMINOTRANSFERASE 23 U/L (12-78); ALKALINE PHOSPHATASE 87 U/L (45-117); BILIRUBIN,TOTAL 0.6 mg/dL (0.2-1.0); TOTAL PROTEIN 6.3 g/dL (6.4-8.2); TROPONIN I 0.031 ng/mL (0.000-0.045)
--- NOTE | 2021-08-14 22:10 | NUR ---
PATIENT STATES SHE USES 2L O2 AT HOME.
[2021-08-14] MEDS ORDERED: LABETALOL 5MG/ML, 20ML ONE (22:18)
[2021-08-14] MEDS ORDERED: LABETALOL 5MG/ML, 20ML IVPush ONE (22:30)
--- NOTE | 2021-08-14 23:54 | NUR ---
Assisted primary RN with a straight cath and changing patient. Guera lilly.
--- NOTE | 2021-08-14 23:56 | NUR ---
UA COLLECTED, PATIENT CLEANED UP, PUREWICK IN PLACE, NAD AT THIS TIME, VSS. WCTM
[2021-08-15 00:08] LABS: MICROSCOPIC INDICATED
[2021-08-15 00:14] LABS: AMPHETAMINE SCREEN, URINE Negative (Negative); BARBITURATE SCREEN, URINE Negative (Negative); BENZODIAZEPINE SCREEN, URINE Positive (Negative); CANNABINOID SCREEN, URINE Negative (Negative); COCAINE SCREEN, URINE Negative (Negative); METHADONE SCREEN, URINE Negative (Negative); OPIATE SCREEN, URINE Negative (Negative)
[2021-08-15] MEDS ORDERED: MELATONIN 5 MG TABLET PO PRN (00:30)
[2021-08-15] MEDS ORDERED: ENOXAPARIN 40 MG/0.4 ML SQ SCH (00:30)
[2021-08-15] MEDS ORDERED: POLYETHYLENE GLYCOL 17 GM PACKET PO PRN (00:30)
[2021-08-15] MEDS ORDERED: ONDANSETRON 2MG/ML, 2ML IVPush PRN (00:30)
[2021-08-15] MEDS ORDERED: LABETALOL 5MG/ML, 20ML IVPush PRN (00:30)
[2021-08-15] MEDS ORDERED: ATORVASTATIN 40 MG TABLET PO SCH (00:30)
[2021-08-15] MEDS ORDERED: ACETAMINOPHEN 325 MG TABLET PO PRN (00:30)
[2021-08-15] MEDS ORDERED: OMNIPAQUE 350 MG/ML, 100ML BOTTLE ONE (00:50)
--- NOTE | 2021-08-15 01:02 | NUR ---
PATIENT TO CT, HOSPTITAL BED IN ROOM TO TRANSFER PATIENT UPON RETURN
--- NOTE | 2021-08-15 01:16 | NUR ---
PATIENT RETURN FROM CT, TRANSFERED TO HOSPTIAL BED, CONNECTED BACK TO MONITOR.
[2021-08-15] MEDS ORDERED: METOPROLOL TARTRATE 50 MG TAB ONE (05:36)
[2021-08-15] MEDS ORDERED: ASPIRIN 81 MG TABLET EC ONE (05:36)
[2021-08-15] MEDS ORDERED: METOPROLOL TARTRATE 50 MG TAB PO SCH (06:00)
[2021-08-15] MEDS ORDERED: ASPIRIN 81 MG TABLET EC PO SCH (06:00)
--- NOTE | 2021-08-15 06:55 | NUR ---
Report given to JACOB Boland
--- NOTE | 2021-08-15 07:21 | NUR ---
PT STATES "I'M FEELING LIKE A PANIC ATTACK" REPORTS NAUSEA. PT SPEAKING IN FULL SENTENCES, ASKING FOR WATER. DENIES PAIN.
[2021-08-15] MEDS ORDERED: OMEPRAZOLE 20 MG CAPSULE.DR ONE (07:28)
[2021-08-15] MEDS ORDERED: ONDANSETRON 2MG/ML, 2ML ONE (07:28)
[2021-08-15] MEDS ORDERED: LISINOPRIL 20 MG TABLET ONE ×2 (07:28→09:05)
--- NOTE | 2021-08-15 08:22 | NUR ---
PT RESTING WITH EYES CLOSED IN BED, NAD NOTED AT THIS TIME. CLEAR LIQUID DIET PROVIDED. CALL LIGHT IN REACH.
--- NOTE | 2021-08-15 08:57 | NUR ---
FIRST ATTEMPT TO CALL REPORT.
[2021-08-15] MEDS ORDERED: SERTRALINE 100MG TABLET PO SCH (09:00)
[2021-08-15] MEDS ORDERED: LISINOPRIL 20 MG TABLET PO SCH ×3 (09:00→09:30)
[2021-08-15] MEDS ORDERED: OMEPRAZOLE 20 MG CAPSULE.DR PO SCH (09:00)
[2021-08-15] MEDS ORDERED: CARVEDILOL 6.25 MG TABLET PO SCH (09:00)
[2021-08-15] MEDS ORDERED: CARVEDILOL 6.25 MG TABLET ONE (09:05)
[2021-08-15] MEDS ORDERED: SERTRALINE 50MG TABLET ONE (09:06)
[2021-08-15] MEDS ORDERED: LISINOPRIL 20 MG TABLET PO ONE (09:30)
[2021-08-15 10:16] VITALS: BP 155/80
[2021-08-15 11:39] LABS: BASOPHILS % (AUTO) 1 % (0-1); EOSINOPHILS % (AUTO) 2 % (1-7); LYMPHOCYTES % (AUTO) 18 % (22-44); MEAN CORPUSCULAR HEMOGLOBIN 31.7 pg (27.0-34.8); MEAN PLATELET VOLUME 7.6 fL (7.4-10.4); MONOCYTES % (AUTO) 15 % (2-9); NEUTROPHILS % (AUTO) 64 % (42-75); PLATELET COUNT 165 x10^3/uL (130-400); RED BLOOD COUNT 3.87 x10^6/uL (3.82-5.3); RED CELL DISTRIBUTION WIDTH 13.4 % (9.6-15.2)
[2021-08-15 11:49] LABS: ANION GAP 6 mmol/L (5-15); CALCIUM 8.4 mg/dL (8.5-10.1); CHLORIDE 97 mmol/L (98-107); CREATININE 0.61 mg/dL (0.55-1.02)
[2021-08-15] MEDS ORDERED: POTASSIUM CHLORIDE 20 MEQ TAB.ER.PRT PO ONE (13:00)
[2021-08-15 13:28] VITALS: BP 130/79
[2021-08-15] MEDS ORDERED: CARV6.2512 PO (15:37)
[2021-08-16] MEDS ORDERED: SERTRALINE 50MG TABLET PO SCH (09:00)
[2021-08-16] MEDS ORDERED: LISINOPRIL 20 MG TABLET PO SCH ×2 (09:00)
== END 2021-08-15 16:14 | DRG 871 ==
LOC: ED 21:44 → EDIP 08-15 00:18 → 3N 08-15 09:53
PROVIDERS: ADMIT Internal Medicine; ATTEND Hospitalist
DX: A41.9 Sepsis, unspecified organism (principal); I21.A1 Myocardial infarction type 2; J96.01 Acute respiratory failure with hypoxia; E87.1 Hypo-osmolality and hyponatremia; I47.1 Supraventricular tachycardia; E04.1 Nontoxic single thyroid nodule; F41.9 Anxiety disorder, unspecified; I10 Essential (primary) hypertension; J44.9 Chronic obstructive pulmonary disease, unspecified; I16.0 Hypertensive urgency; W18.39XA Other fall on same level, initial encounter; F32.9 Major depressive disorder, single episode, unspecified; Y93.01 Activity, walking, marching and hiking; Y92.59 Other trade areas as the place of occurrence of the external cause; Y99.8 Other external cause status; Z99.81 Dependence on supplemental oxygen; Z72.0 Tobacco use; Z88.0 Allergy status to penicillin; Z88.8 Allergy status to other drugs, medicaments and biological substances
CPT/HCPCS: 36415; 71045; 71275; 80048; 80053; 80307; 80320; 81001; 83735; 84484; 85025; 96361; 96374; G0378; J2405; Q9967; G0480; J7030